=== PATIENT | female | born 1955 | race Caucasian/White ===

== ENCOUNTER 2017-04-10 19:04 | Emergency (ER) | payer OTHER ==
[2017-04-10 19:11] VITALS: BP 150/82
--- OUTSIDE RECORDS SUMMARY | 2017-04-10 19:55 | XMS REPORT | Continuity of Care Document ---
:1955 Author Organization [facility] ([facility]) Address [address] [place] [address] Phone [phone] Care Team Providers Name Role Phone Bakari Lemus Primary Care Provider [phone] Source Comments This disclosure is being made pursuant to the Care Everywhere program, applicable federal and state laws, and may not contain all informaitonavailable regarding this patient.[facility] ([facility]) Active Allergies and Adverse Reactions Not on File Current Medications Not on file Active Problems Not on file Social History Tobacco Use Types Packs/Day Years Used Date Never Assessed Plan of Care Health Maintenance Due Date Last Done Comments HCV Screening 1955 Hepatitis B Vaccine (1 of 3 - Primary Series) 1955 Tdap Vaccine 1968 Lipid Disorder Screening 1975 MMR Vaccine 1975 Td Vaccine 1975 Cervical Cancer Screening 1987 Mammogram 1997 Colonoscopy 2007 Influenza Vaccine: Seasonal (#1) 06/11/2016 Results from Last 3 Months Not on file
--- OUTSIDE RECORDS SUMMARY | 2017-04-10 19:56 | XMS REPORT | Summary of Care ---
:1955 Author Organization [facility] Address [address] [place] [phone]- Care Team Providers Name Role Phone Minoo Haile Primary Care Physician Encounter Date(s): 11/25/16 - 11/25/[address] [address]- [facility] Discharge Diagnosis: Heel spur Discharge Disposition: 01 Discharged to Home or Self Care Attending Physician: Eric Orta MD Admitting Physician: Eric Orta MD Vital Signs Most recent to oldest [Reference Range]: 1 2 Temperature Temporal Artery [36.0-38.0 DegC] 36.7 DegC (11/25/16 6:30 AM) Heart Rate Monitored [60-100 bpm] 89 bpm 91 bpm (11/25/16 7:03 AM) (11/25/16 6:30 AM) Respiratory Rate [12-20 br/min] 18 br/min 18 br/min (11/25/16 7:03 AM) (11/25/16 6:30 AM) SpO2 98 % 96 % (11/25/16 7:03 AM) (11/25/16 6:30 AM) Blood Pressure [90-130/60-90 mmHg] 112/62mmHg 144/122mmHg (11/25/16 7:03 AM) *HI* (11/25/16 6:30 AM) Weight Estimated 62 kg (11/25/16 6:30 AM) Weight Dosing 62.00 kg1 (11/25/16 6:43 AM) 1Result Comment: This result was because the dosing weight was either not entered or it is>30 days old. This result is based off: Weight Estimated November 25, 2016 06:30:00 [employer] by Justina Evan, RN Problem List Condition Effective Dates Status Health Status Informant Depression(Confirmed) Active Binge eating(Confirmed) Active Allergies, Adverse Reactions, Alerts Substance Reaction Severity Status sulfa drugs rash Active Medications FLUoxetine 10 mg oral tablet 1 tab(s), Oral, Daily, # 30 tab(s), 0 Refill(s), Start Date: 05/23/15 15:51:00 CDT, Pharmacy: [place], [place] Start Date: 05/23/15 Stop Date: 06/27/15 Status: CompletedFLUoxetine 20 mg oral capsule 1 cap(s), Oral, Daily, # 30 cap(s), 2 Refill(s), Start Date: 06/27/15 14:39:00 CDT, Pharmacy: [place], [place] Start Date: 06/27/15 Stop Date: 05/23/16 Status: DiscontinuedLevaquin 750 mg oral tablet 1 tab(s), Oral, Daily, # 5 tab(s), 0 Refill(s), Start Date: 11/13/16 14:36:00 [employer], Pharmacy: [place], [place] Start Date: 11/13/16 Stop Date: 11/18/16 Status: OrderedVentolin HFA 90 mcg/inh inhalation aerosol 2 puff(s), Inhale, q4hr, PRN for wheezing, # 8 gm, 0 Refill(s), Start Date: 01/25 14:37:00 [employer], Pharmacy: [place], [place] Start Date: 11/13/16 Status: OrderedVyvanse 20 mg oral capsule 1 cap(s), Oral, qAM, May fill on 09/19/2016, # 30 cap(s), 0 Refill(s), Start Date : 09/18/16 9:04:21 [employer] Start Date: 09/18/16 Status: OrderedVyvanse 20 mg oral capsule 1 cap(s), Oral, qAM, # 30 cap(s), 0 Refill(s), Start Date: 08/20/16 8:50:35 CDT Start Date: 08/20/16 Stop Date: 09/18/16 Status: CompletedVyvanse 20 mg oral capsule 1 cap(s), Oral, qAM, # 30 cap(s), 0 Refill(s), Start Date: 06/12/16 10:19:00 CDT Start Date: 06/12/16 Stop Date: 07/17/16 Status: CompletedVyvanse 20 mg oral capsule 1 cap(s), Oral, qAM, # 30 cap(s), 0 Refill(s), Start Date: 07/17/16 9:49:57 CDT Start Date: 07/17/16 Stop Date: 08/20/16 Status: Completed Results Patient Viewable Results Most recent to oldest [Reference Range]: 1 Estimated Creatinine Clearance 56.41 mL/min (11/25/16 6:43 AM) Immunizations Given and Recorded Vaccine Date Status Refusal Reason influenza virus vaccine, inactivated 09/04/16 Recorded Procedures Procedure Date Related Diagnosis Body Site Appendectomy Miscellaneous operations1 TL - Tubal ligation 1Removal of skin cancer on right side of face and L shoulder Social History No data available for this section Assessment and Plan No data available for this section
--- OUTSIDE RECORDS SUMMARY | 2017-04-10 19:56 | XMS REPORT | Summary of Care ---
:1955 Author Organization [facility] Address [address] [place] [phone] Care Team Providers Name Role Phone Minoo Haile Primary Care Physician Encounter Date(s): 12/28/16 - 12/28/16 [facility] [address] [place] [address] - [facility] Discharge Disposition: 01 Discharged to Home or Self Care Attending Physician: Minoo Haile MD Referring Physician: Minoo Haile MD Vital Signs Most recent to oldest [Reference Range]: 1 Temperature Tympanic [36.6-38.1 DegC] 36.8 DegC (12/28/16 3:48 PM) Temperature C to F 98.2 (12/28/16 3:48 PM) Peripheral Pulse Rate [60-100 bpm] 79 bpm (12/28/16 3:48 PM) Respiratory Rate [12-20 br/min] 16 br/min (12/28/16 3:48 PM) SpO2 [90-100 %] 98 % (12/28/16 3:48 PM) SpO2 Location Right hand (12/28/16 3:48 PM) Blood Pressure [90-130/60-90 mmHg] 112/66mmHg (12/28/16 3:48 PM) Mean Arterial Pressure, Cuff 81 mmHg (12/28/16 3:48 PM) Most recent to oldest [Reference Range]: 1 Height/Length Measured 166 cm (12/28/16 3:48 PM) Weight Dosing 67.9 kg (12/28/16 3:48 PM) Weight Measured 67.9 kg (12/28/16 3:48 PM) BSA Measured 1.76 m2 (12/28/16 3:48 PM) Body Mass Index Measured 24.64 kg/m2 (12/28/16 3:48 PM) Problem List Condition Effective Dates Status Health Status Informant Depression(Confirmed) Active Binge eating(Confirmed) Active Allergies, Adverse Reactions, Alerts Substance Reaction Severity Status Levaquin tachycardia Active sulfa drugs rash Active Medications FLUoxetine 10 mg oral tablet 1 tab(s), Oral, Daily, # 30 tab(s), 0 Refill(s), Start Date: 05/23/15 15:51:00 CDT, Pharmacy: [place], [place] Start Date: 05/23/15 Stop Date: 06/27/15 Status: CompletedFLUoxetine 20 mg oral capsule 1 cap(s), Oral, Daily, # 30 cap(s), 2 Refill(s), Start Date: 06/27/15 14:39:00 CDT, Pharmacy: [place], [place] Start Date: 06/27/15 Stop Date: 05/23/16 Status: DiscontinuedLevaquin 750 mg oral tablet 1 tab(s), Oral, Daily, # 5 tab(s), 0 Refill(s), Start Date: 11/13/16 14:36:00 [employer], Pharmacy: [place], [place] Start Date: 11/13/16 Stop Date: 12/28/16 Status: CompletedVentolin HFA 90 mcg/inh inhalation aerosol 2 puff(s), Inhale, q4hr, PRN for wheezing, # 8 gm, 0 Refill(s), Start Date: 01/25 14:37:00 [employer], Pharmacy: [place], [place] Start Date: 11/13/16 Stop Date: 12/28/16 Status: DiscontinuedVyvanse 20 mg oral capsule 1 cap(s), Oral, qAM, May fill on 09/19/2016, # 30 cap(s), 0 Refill(s), Start Date : 09/18/16 9:04:21 [employer] Special Instructions: May fill on 09/19/2016 Start Date: 09/18/16 Stop Date: 12/28/16 Status: CompletedVyvanse 20 mg oral capsule 1 [...] Start Date: 07/17/16 Stop Date: 08/20/16 Status: CompletedVyvanse 30 mg oral capsule 1 cap(s), Oral, qAM, # 30 cap(s), 0 Refill(s), Start Date: 12/28/16 16:30:00 [employer] Start Date: 12/28/16 Status: Ordered Results No data available for this section Immunizations Vaccine Date Refusal Reason influenza virus vaccine, inactivated 09/04/16 Procedures Procedure Date Related Diagnosis Body Site Appendectomy Miscellaneous operations1 TL - Tubal ligation 1Removal of skin cancer on right side of face and L shoulder Social History No data available for this section Assessment and Plan No data available for this section
== END 2017-04-10 19:30 | disposition left against medical advice (07) ==
LOC: ER 19:04
DX: Z53.21 Procedure and treatment not carried out due to patient leaving prior to being seen by health care provider (principal)